=== PATIENT | female | born 1970 | race Caucasian/White ===

== ENCOUNTER 2016-11-13 10:11 | Emergency (ER) | payer OTHER ==
--- NOTE | 2016-11-13 10:25 | ER Document Report ---
ED General - General Stated Complaint: POSSIBLE SYNCOPAL EPISODE Mode of Arrival: Medic Information source: Patient Notes: 38-year-old female history of hypertension on lisinopril with no other medical history was on no other medications presents with complaints of a seizure like episode that lasted about 20 seconds just prior to arrival. Patient was standing went to the ground noted to have generalized clonic tonic activity. There was a postictal state or patient was confused, patient was evaluated by EMS noted to have a blood sugar of 120, blood pressure was stable however when they stood her up had a syncopal episode. Patient also notes that she's been complaining of right lower quadrant abdominal pain around her scar for 2 days TRAVEL OUTSIDE OF THE [place] IN LAST 30 DAYS: No - HPI Onset: Just prior to arrival Onset/Duration: Sudden Quality of pain: Sharp Severity: Mild Pain Level: 1 Associated symptoms: Other Exacerbated by: Denies Relieved by: Denies Similar symptoms previously: No Recently seen / treated by doctor: No - Related Data Allergies/Adverse Reactions: codeine [Codeine] Allergy (Mild, Verified 01/31/16 11:49) rash, swelling, hives promethazine HCl [From Phenergan] Allergy (Mild, Verified 01/31/16 11:49) rash, swelling, hives Sulfa (Sulfonamide Antibiotics) Allergy (Mild, Verified 01/31/16 11:49) rash, swelling, hives Past Medical History - Social History Smoking Status: Current Every Day Smoker Cigarette use (# per day): Yes Chew tobacco use (# tins/day): No Smoking Education Provided: No Family History: Reviewed & Not Pertinent - Past Medical History Cardiac Medical History: Reports: Hx Hypercholesterolemia - triglycerides, Hx Hypertension Denies: Hx Coronary Artery Disease, Hx Heart Attack Pulmonary Medical History: Denies: Hx Asthma, Hx Bronchitis, Hx COPD, Hx Pneumonia Neurological Medical History: Reports: Hx Migraine. Denies: Hx Cerebrovascular Accident, Hx Seizures Renal/ Medical History: Reports: Hx Kidney Stones Musculoskeltal Medical History: Reports Hx Arthritis - Spinal, Left Knee, LEFT THUMB, NECK Traumatic Medical History: Reports: Hx Fractures Past Surgical History: Reports: Hx Appendectomy, Hx Section, Hx Orthopedic Surgery - carpal tunnel. Denies: Hx Hysterectomy, Hx Pacemaker - Immunizations Hx Diphtheria, Pertussis, Tetanus Vaccination: Yes - 2013 Review of Systems - Review of Systems Notes: REVIEW OF SYSTEMS: CONSTITUTIONAL : Denies fever, chills, or sweats. Denies recent illness. EENT: Denies eye, ear, throat, or mouth pain or symptoms. Denies nasal or sinus congestion or discharge. Denies throat, tongue, or mouth swelling or difficulty swallowing. CARDIOVASCULAR: Denies chest pain. Denies palpitations or racing or irregular heart beat. Denies ankle edema. RESPIRATORY: Denies cough, cold, or chest congestion. Denies shortness of breath, difficulty breathing, or wheezing. GASTROINTESTINAL: Right lower quadrant abdominal pain GENITOURINARY: Denies difficulty urinating, painful urination, burning, frequency, blood in urine, or discharge. FEMALE GENITOURINARY: Denies vaginal bleeding, heavy or abnormal periods, irregular periods. Denies vaginal discharge or odor. MUSCULOSKELETAL: Denies back or neck pain or stiffness. Denies joint pain or swelling. SKIN: Denies rash, lesions or sores. HEMATOLOGIC : Denies easy bruising or bleeding. LYMPHATIC: Denies swollen, enlarged glands. NEUROLOGICAL: Seizure like activity PSYCHIATRIC: Denies anxiety or stress. Denies depression, suicidal ideation, or homicidal ideation. ALL OTHER SYSTEMS REVIEWED AND NEGATIVE. Dictation was performed using [employer] voice recognition software PHYSICAL EXAMINATION: GENERAL: Well-appearing, well-nourished and in no acute distress. HEAD: Atraumatic, normocephalic. EYES: Pupils equal round and reactive to light, extraocular movements intact, conjunctiva are normal. ENT: Nares patent, oropharynx clear without exudates. Moist mucous membranes. NECK: Normal range of motion, supple without lymphadenopathy LUNGS: Breath sounds clear to auscultation bilaterally and equal. No wheezes rales or rhonchi. HEART: Regular rate and rhythm without murmurs ABDOMEN: Soft, tender in the right lower quadrant without guarding Female : deferred Musculoskeletal: Normal range of motion, no pitting or edema. No cyanosis. NEUROLOGICAL: Cranial nerves grossly intact. Normal speech, normal gait. Normal sensory, motor exams PSYCH: Normal mood, normal affect. SKIN: Warm, Dry, normal turgor, no rashes or lesions noted. Physical Exam - Vital signs Vitals: Resp BP 14 130/58 H 11/13/16 10:23 11/13/16 10:23 Course - Re-evaluation Re-evalutation: 11/13/16 10:24 Lab work imaging are pending at this time patient's otherwise stable 11/13/16 12:16 CT head and abdomen pelvis noted no significant abnormality, patient otherwise looks well. Given that this is a first seizure I will have her follow-up with neurology and given her very close to seizure precautions Patient notes history of multiple kidney stones, I believe her hematuria secondary to this After performing a Medical Screening Examination, I estimate there is LOW risk for INTRACRANIAL HEMORRHAGE, ISCHEMIC CVA, MALIGNANT DYSRHYTHMIA, ACUTE CORONARY SYNDROME, MENINGITIS, PULMONARY EMBOLISM, or SEPSIS thus I consider the discharge disposition reasonable. The patient and I have discussed the diagnosis and risks, and we agree with discharging home with close follow-up with the understanding that symptoms and presentations can change. We also discussed returning to the Emergency Department immediately if new or worsening symptoms occur. We have discussed the symptoms which are most concerning (e.g., changing or worsening pain, weakness, vomiting, fever) that necessitate immediate return. 11/13/16 12:18 - Vital Signs Vital signs: Temp Pulse Resp BP Pulse Ox 97.6 F 66 17 142/66 H 99 11/13/16 10:33 11/13/16 10:33 11/13/16 12:02 11/13/16 12:02 11/13/16 12:02 - Laboratory Result Diagrams: 11/13/16 10:25 11/13/16 10:25 Laboratory results interpreted by me: 11/13/16 11/13/16 11/13/16 10:25 10:25 10:25 Hgb 11.4 L Hct 34.1 L MCV 79 L MCH 26.4 L RDW 15.5 H Carbon Dioxide 21 L Urine Blood MODERATE H - Diagnostic Test Radiology reviewed: Image reviewed, Reports reviewed - EKG Interpretation by Me EKG shows normal: Sinus rhythm, [place], Intervals, QRS Complexes Discharge - Discharge Clinical Impression: Seizure, Hematuria, Right lower quadrant abdominal pain Syncope Qualifiers: Syncope type: unspecified Qualified Code(s): R55 - Syncope and collapse Condition: Stable Disposition: HOME, SELF-CARE Instructions: Abdominal Pain ([facility]), New Seizure ([facility]) Additional Instructions: Follow up with your physician tomorrow for further care or return to the ED IMMEDIATELY if symptoms worsen or new concerns occur Prescriptions: Oxycodone HCl/Acetaminophen [Percocet 5-325 mg Tablet] 1 - 2 tab PO Q4H PRN #15 tablet PRN Reason: Tamsulosin HCl [Flomax] 0.4 mg PO Q6 #10 cap.er.24h
[2016-11-13 10:49] LABS: ABSOLUTE EOSINOPHILS # (AUTO) 0.1 10^3/uL (0.0-0.6); ABSOLUTE LYMPHOCYTES (AUTO) 2.2 10^3/uL (0.5-4.7); ABSOLUTE MONOCYTES (AUTO) 0.6 10^3/uL (0.1-1.4); ABSOLUTE NEUT (AUTO) 4.2 10^3/uL (1.7-8.2); BASOPHILS % (AUTO) 0.5 % (0-2); EOSINOPHILS % (AUTO) 1.1 % (0-6); HEMATOCRIT 34.1 % (36.0-47.0); HEMOGLOBIN 11.4 g/dL (12.0-15.5); HGB HCT DIFFERENCE 0.1; LYMPHOCYTES % (AUTO) 30.6 % (13-45); MEAN CORPUSCULAR HEMOGLOBIN 26.4 pg (27.0-33.4); MEAN CORPUSCULAR HGB CONC 33.3 g/dL (32.0-36.0); MEAN CORPUSCULAR VOLUME 79 fl (80-97); MONOCYTES % (AUTO) 8.4 % (3-13); RED BLOOD COUNT 4.31 10^6/uL (3.72-5.28); RED CELL DISTRIBUTION WIDTH 15.5 % (11.5-14.0); SEGMENTED NEUTROPHILS % (AUTO) 59.4 % (42-78); WHITE BLOOD COUNT 7.1 10^3/uL (4.0-10.5)
[2016-11-13 10:53] LABS: APPEARANCE,URINE SLIGHTLY-CLOUDY; BILIRUBIN,URINE NEGATIVE (NEGATIVE); GLUCOSE, URINE NEGATIVE (NEGATIVE); KETONES,URINE NEGATIVE (NEGATIVE); LEUKOCYTE ESTERASE,URINE NEGATIVE (NEGATIVE); NITRITE,URINE NEGATIVE (NEGATIVE); PROTEIN,URINE NEGATIVE (NEGATIVE); UROBILINOGEN,URINE NEGATIVE mg/dL (<2.0)
[2016-11-13 11:08] LABS: BLOOD UREA NITROGEN 14 mg/dL (7-20); CALCIUM 9.4 mg/dL (8.4-10.2); CREATININE RESULT 0.57 mg/dL (0.52-1.25); GLUCOSE 105 mg/dL (75-110)
[2016-11-13 11:09] LABS: ALANINE AMINOTRANSFERASE 49 U/L (9-52); ALBUMIN 4.1 g/dL (3.5-5.0); ALKALINE PHOSPHATASE 116 U/L (38-126); ANION GAP 13 (5-19); ASPARTATE AMINO TRANSFERASE 26 U/L (14-36); BILIRUBIN,DIRECT 0.1 mg/dL (0.0-0.4); BILIRUBIN,TOTAL 0.6 mg/dL (0.2-1.3); CARBON DIOXIDE 21 mmol/L (22-30); CHLORIDE 106 mmol/L (98-107); CREATINE KINASE 123 U/L (30-135); LIPASE 135.7 U/L (23-300); POTASSIUM 4.1 mmol/L (3.6-5.0); SODIUM 140.2 mmol/L (137-145); TOTAL PROTEIN 6.8 g/dL (6.3-8.2)
[2016-11-13 11:22] LABS: TROPONIN I < 0.012 ng/mL
[2016-11-13] MEDS ORDERED: MORPHINE SULFATE 10 MG/ML INJ IV ONE (11:23)
--- NOTE | 2016-11-13 13:11 | EKG REPORT ---
SEVERITY:- NORMAL ECG - SINUS RHYTHM : Confirmed by: Zena Andres MD 13-Nov-2016 13:10:23
[2016-11-13 13:30] VITALS: BP 119/60
== END 2016-11-13 13:30 | disposition home or self-care (01) ==
LOC: ER 10:11
DX: R56.9 Unspecified convulsions (principal); R31.9 Hematuria, unspecified; R10.31 Right lower quadrant pain; R55 Syncope and collapse; Z79.899 Other long term (current) drug therapy; I10 Essential (primary) hypertension
CPT/HCPCS: 93005; 99284; 96374; 36415; 82553; 82550; 83690; 85025; 80053; 81001; 84484; 83880; 70450; 74177; 93010; J2270

== ENCOUNTER → 2017-01-23 | Outpatient (CLI) | payer OTHER ==
--- NOTE | 2017-01-23 15:33 | WOMENS IMAGING REPORT ---
EXAM DESCRIPTION: BILAT DIAGNOSTIC MAMMO W/CAD; U/S BREAST UNILAT LIMITED COMPLETED DATE/TIME: 01/23/2017 1:21 pm; 01/23/2017 1:44 pm REASON FOR STUDY: N63, BREAST LUMP; BREAST LUMP;N63 N63 UNSPECIFIED LUMP IN BREAST COMPARISON: 2014. TECHNIQUE: Standard craniocaudal and mediolateral oblique views of each breast recorded using digita l acquisition. Additional left mediolateral view. Additional targeted left breast ultrasound in the region of interest. Grayscale and selected color D oppler images are obtained. LIMITATIONS: None. FINDINGS: RIGHT BREAST MASSES: No suspicious masses. CALCIFICATIONS: No new or suspicious calcifications. ARCHITECTURAL DISTORTION: None. DEVELOPING DENSITY: None. ASYMMETRY: None noted. OTHER: No other significant findings. LEFT BREAST MASSES: No suspicious masses. CALCIFICATIONS: No new or suspicious calcifications. ARCHITECTURAL DISTORTION: None. DEVELOPING DENSITY: None. ASYMMETRY: None noted. OTHER: No other significant finding. Read with the assistance of CAD: .[facility] - R2 Cenova Version 1.3 .[facility] - R2 Cenova Version 1.3 .[facility] - R2 Cenova Version 2.4 .[facility] R2 Cenova Version 2.4 .[facility] - R2 High Lift Driver Version 9.2 Ultrasound imaging in the region of interest at approximately 9 -10 o'clock is negative. No mass or architectural distortion appreciated. IMPRESSION: Negative diagnostic mammograms. Negative left breast ultrasound. BREAST DENSITY: c. The breasts are heterogeneously dense, which may obscure small masses. BIRAD: 1 Negative. RECOMMENDATION: RECOMMENDED FOLLOW UP: Clinical followup. Continued regular screening mammography o therwise. SPECIFIC INTERVENTION/IMAGING/CONSULTATION RECOMMENDED:No additional intervention/ imaging/consultati on needed at this time. COMMUNICATION:No significant abnormalities to discuss with the patient today. COMMENT: The patient has been notified of the results by letter per SA requirements. Additional no tification policies are in place for contacting patient with suspicious or incomplete findings. Quality ID #[id number]: The [employer] recommends an annual screening mammogram for women aged 40 years or over. This facility utilizes a reminder system to ensure that all patients receive reminder letters, and/or direct phone calls for appointments. This includes reminders for routine scr eening mammograms, diagnostic mammograms, or other Breast Imaging Interventions when appropriate. Th is patient will be placed in the appropriate reminder system. The [employer] (ACR) has developed recommendations for screening MRI of the breast s in certain patient populations, to be used in conjunction with mammography. Breast MRI surveillanc e may be appropriate for women with more than 20% lifetime risk of developing breast cancer as deter mined by genetic testing, significant family history of the disease, or history of mantle radiation f or Hodgkins Disease. ACR Practice Guidelines 2008. TECHNICAL DOCUMENTATION: FINDING NUMBER: (1) ASSESSMENT: (1) JOB ID: [id number] [employer] All Rights Reserved
--- NOTE | 2017-01-23 15:34 | WOMENS IMAGING REPORT ---
EXAM DESCRIPTION: BILAT DIAGNOSTIC MAMMO W/CAD; U/S BREAST UNILAT LIMITED COMPLETED DATE/TIME: 01/23/2017 1:21 pm; 01/23/2017 1:44 pm REASON FOR STUDY: N63, BREAST LUMP; BREAST LUMP;N63 N63 UNSPECIFIED LUMP IN BREAST COMPARISON: 2014. TECHNIQUE: Standard craniocaudal and mediolateral oblique views of each breast recorded using digita l acquisition. Additional left mediolateral view. Additional targeted left breast ultrasound in the region of interest. Grayscale and selected color D oppler images are obtained. LIMITATIONS: None. FINDINGS: RIGHT BREAST MASSES: No suspicious masses. CALCIFICATIONS: No new or suspicious calcifications. ARCHITECTURAL DISTORTION: None. DEVELOPING DENSITY: None. ASYMMETRY: None noted. OTHER: No other significant findings. LEFT BREAST MASSES: No suspicious masses. CALCIFICATIONS: No new or suspicious calcifications. ARCHITECTURAL DISTORTION: None. DEVELOPING DENSITY: None. ASYMMETRY: None noted. OTHER: No other significant finding. Read with the assistance of CAD: .[facility] - R2 Cenova Version 1.3 .[facility] Imaging - R2 Cenova Version 1.3 .[facility] - R2 Cenova Version 2.4 .[facility] - R2 Cenova Version 2.4 .[facility] - R2 Machine Welder Version 9.2 Ultrasound imaging in the region of interest at approximately 9 -10 o'clock is negative. No mass or architectural distortion appreciated. IMPRESSION: Negative diagnostic mammograms. Negative left breast ultrasound. BREAST DENSITY: c. The breasts are heterogeneously dense, which may obscure small masses. BIRAD: 1 Negative. RECOMMENDATION: RECOMMENDED FOLLOW UP: Clinical followup. Continued regular screening mammography o therwise. SPECIFIC INTERVENTION/IMAGING/CONSULTATION RECOMMENDED:No additional intervention/ imaging/consultati on needed at this time. COMMUNICATION:No significant abnormalities to discuss with the patient today. COMMENT: The patient has been notified of the results by letter per SA requirements. Additional no tification policies are in place for contacting patient with suspicious or incomplete findings. Quality ID #225: The [employer] recommends an annual screening mammogram for women aged 40 years or over. This facility utilizes a reminder system to ensure that all patients receive reminder letters, and/or direct phone calls for appointments. This includes reminders for routine scr eening mammograms, diagnostic mammograms, or other Breast Imaging Interventions when appropriate. Th is patient will be placed in the appropriate reminder system. The [employer] (ACR) has developed recommendations for screening MRI of the breast s in certain patient populations, to be used in conjunction with mammography. Breast MRI surveillanc e may be appropriate for women with more than 20% lifetime risk of developing breast cancer as deter mined by genetic testing, significant family history of the disease, or history of mantle radiation f or Hodgkins Disease. ACR Practice Guidelines 2008. TECHNICAL DOCUMENTATION: FINDING NUMBER: (1) ASSESSMENT: (1) JOB ID: [id number] [employer]- All Rights Reserved
== END ==
LOC: WI 13:05
PROVIDERS: ATTEND Family Medicine
DX: N63 Unspecified lump in breast (principal)
CPT/HCPCS: 76642; G0204; 77066

== ENCOUNTER → 2018-01-01 | Outpatient (CLI) | payer MEDICAID, OTHER ==
--- NOTE | 2018-01-01 11:55 | RADIOLOGY REPORT (SQ) ---
EXAM DESCRIPTION: HIP RIGHT AP/LATERAL COMPLETED DATE/TIME: 01/01/2018 11:35 am REASON FOR STUDY: ACUTE RIGHT HIP PAIN M25.551 PAIN IN RIGHT HIP COMPARISON: Right hip films 05/16/2016 CT abdomen pelvis 11/13/2016 NUMBER OF VIEWS: Two views. TECHNIQUE: AP pelvis and additional frog-leg view of the right hip. LIMITATIONS: None. FINDINGS: MINERALIZATION: Normal. RIGHT HIP: No fracture or dislocation. Mild joint space narrowing with moderate acetabular rim bony spurring, stable compared to previous exams. LEFT HIP: No fracture or dislocation. Mild joint space narrowing with moderate left acetabular rim b dimitrios spurring, stable compared to previous exams. . PUBIS AND ISCHIUM: No fracture. PELVIS: No fracture. SACRUM: No fracture or dislocation. No worrisome bone lesions. LOWER LUMBAR SPINE: Asymmetric right-sided L5-S1 facet arthropathy SOFT TISSUES: No findings. OTHER: No other significant finding. IMPRESSION: Bilateral hip mild joint space narrowing and osteophyte formation. Right L5-S1 facet ar thropathy. No acute fracture or malalignment. TECHNICAL DOCUMENTATION: JOB ID: [id number] [employer]- All Rights Reserved Reading location - IP/workstation name: [email or web address]
== END ==
LOC: OD 11:08
PROVIDERS: ATTEND Nurse Practitioner Acute Care
DX: M25.551 Pain in right hip (principal)

== ENCOUNTER → 2018-02-14 | Outpatient (CLI) | payer MEDICAID ==
--- NOTE | 2018-02-17 09:56 | WOMENS IMAGING REPORT ---
EXAM DESCRIPTION: BILAT SCREENING MAMMO W/CAD COMPLETED DATE/TIME: 02/14/2018 1:15 pm REASON FOR STUDY: SCREENING MAMMO Z12.31 ENCNTR SCREEN MAMMOGRAM FOR MALIGNANT NEOPLASM OF ADILENE COMPARISON: 2014 TECHNIQUE: Standard craniocaudal and mediolateral oblique views of each breast recorded using digita l acquisition. LIMITATIONS: None. FINDINGS: No masses, calcifications or architectural distortion. No areas of suspicion. Read with the assistance of CAD. .[facility] - R2 Cenova Version 1.3 .[facility] Imaging - R2 Cenova Version 1.3 .[facility] - R2 Cenova Version 2.4 .[facility] - R2 Cenova Version 2.4 .[facility] - R2 Petroleum Geologist Version 9.2 IMPRESSION: NORMAL MAMMOGRAM. BIRADS 1. BREAST DENSITY: c. The breasts are heterogeneously dense, which may obscure small masses. BIRAD: 1 NEGATIVE RECOMMENDATION: ROUTINE SCREENING Please consider bilateral screening tomosynthesis in February 2019 given heterogeneously dense tissue COMMENT: The patient has been notified of the results by letter per SA requirements. Additional no tification policies are in place for contacting patient with suspicious or incomplete findings. Quality ID #[id number]: The [employer] recommends an annual screening mammogram for women aged 40 years or over. This facility utilizes a reminder system to ensure that all patients receive reminder letters, and/or direct phone calls for appointments. This includes reminders for routine scr eening mammograms, diagnostic mammograms, or other Breast Imaging Interventions when appropriate. Th is patient will be placed in the appropriate reminder system. The [employer] (ACR) has developed recommendations for screening MRI of the breast s in certain patient populations, to be used in conjunction with mammography. Breast MRI surveillanc e may be appropriate for women with more than 20% lifetime risk of developing breast cancer as deter mined by genetic testing, significant family history of the disease, or history of mantle radiation f or Hodgkins Disease. ACR Practice Guidelines 2008. TECHNICAL DOCUMENTATION: FINDING NUMBER: (1) ASSESSMENT: (1) JOB ID: [id number] [employer]- All Rights Reserved Reading location - IP/workstation name: [email or web address]
== END ==
LOC: WI 12:54
PROVIDERS: ATTEND Family Medicine
DX: Z12.31 Encounter for screening mammogram for malignant neoplasm of breast (principal)
CPT/HCPCS: 77067

== ENCOUNTER 2018-06-05 13:34 | Observation (INO) | payer MEDICAID ==
--- NOTE | 2018-06-05 15:06 | ER Document Report ---
ED Medical Screen (RME) - General Chief Complaint: Syncope Stated Complaint: SYNCOPE Time Seen by Provider: 06/05/18 15:00 TRAVEL OUTSIDE OF THE [place] IN LAST 30 DAYS: No - HPI Notes: 06/05/18 15:05 Syncopal episode while at the doctor's office - Related Data Allergies/Adverse Reactions: codeine [Codeine] Allergy (Mild, Verified 06/05/18 14:50) rash, swelling, hives promethazine HCl [From Phenergan] Allergy (Mild, Verified 06/05/18 14:50) rash, swelling, hives Sulfa (Sulfonamide Antibiotics) Allergy (Mild, Verified 06/05/18 14:50) rash, swelling, hives Past Medical History - Social History Frequency of alcohol use: Occasional Drug Abuse: None - Past Medical History Cardiac Medical History: Reports: Hx Hypercholesterolemia - triglycerides, Hx Hypertension Denies: Hx Coronary Artery Disease, Hx Heart Attack Pulmonary Medical History: Denies: Hx Asthma, Hx Bronchitis, Hx COPD, Hx Pneumonia Neurological Medical History: Reports: Hx Migraine. Denies: Hx Cerebrovascular Accident, Hx Seizures Renal/ Medical History: Reports: Hx Kidney Stones. Denies: Hx Peritoneal Dialysis GI Medical History: Reports: Hx Gastroesophageal Reflux Disease Musculoskeltal Medical History: Reports Hx Arthritis - Spinal, Left Knee, LEFT THUMB, NECK Traumatic Medical History: Reports: Hx Fractures Past Surgical History: Reports: Hx Appendectomy, Hx Section, Hx Orthopedic Surgery - carpal tunnel. Denies: Hx Hysterectomy, Hx Pacemaker - Immunizations Hx Diphtheria, Pertussis, Tetanus Vaccination: Yes - 2013 Review of Systems - Review of Systems Cardiovascular: Syncope Physical Exam - Vital signs Vitals: Temp Pulse Resp BP Pulse Ox 98.5 F 75 16 116/59 L 97 06/05/18 14:05 06/05/18 14:05 06/05/18 14:05 06/05/18 14:05 06/05/18 14:05 - Respiratory Respiratory status: No respiratory distress Chest status: Nontender Breath sounds: Normal Chest palpation: Normal - Cardiovascular Rhythm: Regular Heart sounds: Normal auscultation - Neurological Neuro grossly intact: Yes Cognition: Normal Orientation: AAOx4 Leroy Coma Scale Eye Opening: Spontaneous Leroy Coma Scale Verbal: Oriented Leroy Coma Scale Motor: Obeys Commands Leroy Coma Scale Total: 15 Speech: Normal Cranial nerves: Normal Motor strength normal: LUE, RUE, LLE, RLE Additional motor exam normals: Equal financial services auditor. No: Pronator drift Sensory: Normal Course - Vital Signs Vital signs: Temp Pulse Resp BP Pulse Ox 98.5 F 75 16 116/59 L 97 06/05/18 14:05 06/05/18 14:05 06/05/18 14:05 06/05/18 14:05 06/05/18 14:05 Doctor's Discharge - Discharge Referrals: KYLIE DANIELS DO [Primary Care Provider] - Follow up as needed
[2018-06-05 15:36] LABS: ABSOLUTE EOSINOPHILS # (AUTO) 0.1 10^3/uL (0.0-0.6); ABSOLUTE MONOCYTES (AUTO) 0.6 10^3/uL (0.1-1.4); ABSOLUTE NEUT (AUTO) 5.5 10^3/uL (1.7-8.2); BASOPHILS % (AUTO) 0.4 % (0-2); EOSINOPHILS % (AUTO) 1.1 % (0-6); HEMATOCRIT 35.1 % (36.0-47.0); HEMOGLOBIN 11.7 g/dL (12.0-15.5); LYMPHOCYTES % (AUTO) 24.2 % (13-45); MEAN CORPUSCULAR HEMOGLOBIN 25.5 pg (27.0-33.4); MEAN CORPUSCULAR HGB CONC 33.5 g/dL (32.0-36.0); MEAN CORPUSCULAR VOLUME 76 fl (80-97); PLATELET COUNT 406 10^3/uL (150-450); RED BLOOD COUNT 4.61 10^6/uL (3.72-5.28); RED CELL DISTRIBUTION WIDTH 16.3 % (11.5-14.0); SEGMENTED NEUTROPHILS % (AUTO) 67.3 % (42-78); TOTAL CELLS COUNTED % (AUTO) 100 %; WHITE BLOOD COUNT 8.2 10^3/uL (4.0-10.5)
--- NOTE | 2018-06-05 15:44 | RADIOLOGY REPORT (SQ) ---
EXAM DESCRIPTION: CT HEAD WITHOUT COMPLETED DATE/TIME: 06/05/2018 3:34 pm REASON FOR STUDY: Syncope COMPARISON: 11/13/2016 TECHNIQUE: Axial images acquired through the brain without intravenous contrast. Images reviewed wi th bone, brain and subdural windows. Additional sagittal and coronal reconstructions were generated. Images stored on PACS. All CT scanners at this facility use dose modulation, iterative reconstruction, and/or weight based d osing when appropriate to reduce radiation dose to as low as reasonably achievable (ALARA). [facility]: Dose Right [facility]: CareDose [facility]: Dose Right [facility]: Teradose 4D [facility]: Smart [employer] RADIATION DOSE: CT Rad equipment meets quality standard of care and radiation dose reduction techniq ues were employed. CTDIvol: 53.2 mGy. DLP: 991 mGy-cm. mGy. LIMITATIONS: None. FINDINGS: VENTRICLES: Normal size and contour. CEREBRUM: No masses. No hemorrhage. No midline shift. No evidence for acute infarction. Normal gra y/white matter differentiation. No areas of low density in the white matter. CEREBELLUM: No masses. No hemorrhage. No alteration of density. No evidence for acute infarction. EXTRAAXIAL SPACES: No fluid collections. No masses. ORBITS AND GLOBE: No intra- or extraconal masses. Normal contour of globe without masses. CALVARIUM: No fracture. PARANASAL SINUSES: No fluid or mucosal thickening. SOFT TISSUES: No mass or hematoma. OTHER: No other significant finding. IMPRESSION: NORMAL BRAIN CT WITHOUT CONTRAST. EVIDENCE OF ACUTE STROKE: NO. COMMENT: Quality ID # [id number]: Final reports with documentation of one or more dose reduction techniques (e.g., Automated exposure control, adjustment of the mA and/or kV according to patient size, use of iterative reconstruction technique) TECHNICAL DOCUMENTATION: JOB ID: [id number] [employer]- All Rights Reserved Reading location - IP/workstation name: [email or web address]
[2018-06-05 15:57] LABS: ALANINE AMINOTRANSFERASE 44 U/L (9-52); ALBUMIN 4.6 g/dL (3.5-5.0); ALKALINE PHOSPHATASE 103 U/L (38-126); ANION GAP 16 (5-19); ASPARTATE AMINO TRANSFERASE 29 U/L (14-36); BILIRUBIN,DIRECT 0.1 mg/dL (0.0-0.4); BILIRUBIN,TOTAL 0.4 mg/dL (0.2-1.3); BLOOD UREA NITROGEN 16 mg/dL (7-20); CALCIUM 10.1 mg/dL (8.4-10.2); CARBON DIOXIDE 25 mmol/L (22-30); CHLORIDE 102 mmol/L (98-107); CREATINE KINASE 85 U/L (30-135); GLUCOSE 112 mg/dL (75-110); POTASSIUM 4.5 mmol/L (3.6-5.0); SODIUM 142.8 mmol/L (137-145); TOTAL PROTEIN 8.1 g/dL (6.3-8.2)
--- NOTE | 2018-06-05 16:02 | RADIOLOGY REPORT (SQ) ---
EXAM DESCRIPTION: CHEST SINGLE VIEW COMPLETED DATE/TIME: 06/05/2018 3:52 pm REASON FOR STUDY: sycnope COMPARISON: 11/04/2015, 05/02/2015 EXAM PARAMETERS: NUMBER OF VIEWS: One view. TECHNIQUE: Single frontal radiographic view of the chest acquired. RADIATION DOSE: NA LIMITATIONS: None. FINDINGS: LUNGS AND PLEURA: No opacities, masses or pneumothorax. No pleural effusion. MEDIASTINUM AND HILAR STRUCTURES: No masses. Contour normal. HEART AND VASCULAR STRUCTURES: Heart normal in size. Normal vasculature. BONES: No acute findings. HARDWARE: None in the chest. OTHER: No other significant finding. IMPRESSION: NO ACUTE RADIOGRAPHIC FINDING IN THE CHEST. TECHNICAL DOCUMENTATION: JOB ID: [id number] [employer]- All Rights Reserved Reading location - IP/workstation name: [email or web address]
[2018-06-05] MEDS ORDERED: KETOROLAC TROMETHAMINE INJ/PF 30 MG/1 ML SDV IV ONE (16:22)
[2018-06-05] MEDS ORDERED: NORMAL SALINE 1000 ML 1,000 ML IV ONE (16:22)
[2018-06-05 16:24] LABS: CREATINE KINASE MB 0.74 ng/mL (<4.55)
[2018-06-05 16:25] LABS: TROPONIN I < 0.012 ng/mL
--- NOTE | 2018-06-05 16:26 | ER Document Report ---
ED Syncope and Near Syncope - General Chief Complaint: Syncope Stated Complaint: SYNCOPE Time Seen by Provider: 06/05/18 15:00 TRAVEL OUTSIDE OF THE [place] IN LAST 30 DAYS: No - HPI Notes: Patient is a 47-year-old female that presents to the emergency department for chief complaint of syncope. Patient presents from physician's office for syncopal event. She was checking her daughter and at a doctor's office and while standing she started to feel very light headed. She states she also felt nauseated. She denies any palpitations or vision changes. Patient states she then had a full syncopal episode falling to the ground. Her daughter states she was oriented when she woke back up and she did not see any shaking. patient has no history of seizure in the past. She does states she has been going through menopause and had not had a menstrual cycle for a few months. She had very heavy menstrual flow for 2 days about 2 days ago. Currently her menstrual cycle has almost completely resolved again. She denies feeling syncopal prior to today. She denies any associated fever, chest pain, nausea, vomiting and shortness of breath. Currently she states she is feeling better. Past Medical History: Hypertension, TIA, GERD Past Surgical History: Appendectomy, x2, uterine ablation Social History: Denies drugs alcohol and tobacco Family History: Reviewed and noncontributory for presenting illness Allergies: Reviewed, see documented allergy list. REVIEW OF SYSTEMS: CONSTITUTIONAL : No fever No chills No diaphoresis No recent illness EENT: No vision changes No congestion No sore throat CARDIOVASCULAR: Syncope No chest pain No palpitations RESPIRATORY: No shortness of breath No cough No difficulty breathing GASTROINTESTINAL: No abdominal pain No nausea No vomiting No diarrhea GENITOURINARY: No dysuria No hematuria No difficulty urinating MUSCULOSKELETAL: No back pain No leg pain No arm pain SKIN: No rashes No lesions LYMPHATIC: No swollen, enlarged glands. NEUROLOGICAL: No lightheadedness No headache No weakness No paresthesias PSYCHIATRIC: No anxiety No depression PHYSICAL EXAMINATION: Vital signs reviewed, nursing noted reviewed. GENERAL: Well-appearing, well-nourished and in no acute distress. HEAD: Atraumatic, normocephalic. EYES: Eyes appear normal, extraocular movements intact, sclera anicteric, conjunctiva are normal. ENT: nares patent, oropharynx clear without exudates. Moist mucous membranes. NECK: Normal range of motion, supple without lymphadenopathy LUNGS: Breath sounds clear to auscultation bilaterally and equal. No wheezes rales or rhonchi. HEART: Regular rate and rhythm without murmurs ABDOMEN: Soft, nontender, normoactive bowel sounds. No rebound, guarding, or rigidity. No masses appreciated. EXTREMITIES: Nontender, good range of motion, no pitting or edema. NEUROLOGICAL: No focal neurological deficits. Moves all extremities spontaneously Motor and sensory grossly intact on exam. PSYCH: Normal mood, normal affect. SKIN: Warm, Dry, normal turgor, no rashes or lesions noted on exposed skin - Related Data Allergies/Adverse Reactions: codeine [Codeine] Allergy (Mild, Verified 06/05/18 14:50) rash, swelling, hives promethazine HCl [From Phenergan] Allergy (Mild, Verified 06/05/18 14:50) rash, swelling, hives Sulfa (Sulfonamide Antibiotics) Allergy (Mild, Verified 06/05/18 14:50) rash, swelling, hives Past Medical History - Social History Smoking Status: Never Smoker Frequency of alcohol use: Occasional Drug Abuse: None Family History: Reviewed & Not Pertinent Patient has suicidal ideation: No Patient has homicidal ideation: No - Past Medical History Cardiac Medical History: Reports: Hx Hypercholesterolemia - triglycerides, Hx Hypertension Denies: Hx Coronary Artery Disease, Hx Heart Attack Pulmonary Medical History: Denies: Hx Asthma, Hx Bronchitis, Hx COPD, Hx Pneumonia Neurological Medical History: Reports: Hx Migraine. Denies: Hx Cerebrovascular Accident, Hx Seizures Renal/ Medical History: Reports: Hx Kidney Stones. Denies: Hx Peritoneal Dialysis GI Medical History: Reports: Hx Gastroesophageal Reflux Disease Musculoskeletal Medical History: Reports Hx Arthritis - Spinal, Left Knee, LEFT THUMB, NECK Traumatic Medical History: Reports: Hx Fractures Past Surgical History: Reports: Hx Appendectomy, Hx Section, Hx Orthopedic Surgery - carpal tunnel. Denies: Hx Hysterectomy, Hx Pacemaker - Immunizations Hx Diphtheria, Pertussis, Tetanus Vaccination: Yes - 2013 Review of Systems - Review of Systems Notes: Dictated Physical Exam - Vital signs Vitals: Temp Pulse Resp BP Pulse Ox 98.5 F 75 16 116/59 L 97 06/05/18 14:05 06/05/18 14:05 06/05/18 14:05 06/05/18 14:05 06/05/18 14:05 - Notes Notes: Dictated Course - Re-evaluation Re-evalutation: 06/05/18 16:25 Vitals reviewed. Nursing notes reviewed. Patient is orthostatic negative. Hemoglobin stable at 11.7. Her cardiac enzyme is negative. EKG showed no dysrhythmia or ischemia. Patient was later complaining of pain in her left wrist and shoulder, imaging showed no acute injury. She will be admitted to the hospital for telemetry monitoring and further cardiac evaluation overnight. She is stable at time of admission. Case discussed with Dr. Figueroa who accepted admission. Laboratory 06/05/18 06/05/18 06/05/18 15:20 15:20 15:20 WBC 8.2 RBC 4.61 Hgb 11.7 L Hct 35.1 L MCV 76 L MCH 25.5 L MCHC 33.5 RDW 16.3 H Plt Count 406 Seg Neutrophils % 67.3 Lymphocytes % 24.2 Monocytes % 7.0 Eosinophils % 1.1 Basophils % 0.4 Absolute Neutrophils 5.5 Absolute Lymphocytes 2.0 Absolute Monocytes 0.6 Absolute Eosinophils 0.1 Absolute Basophils 0.0 Sodium 142.8 Potassium 4.5 Chloride 102 Carbon Dioxide 25 Anion Gap 16 BUN 16 Creatinine 0.71 Est GFR ( Amer) > 60 Est GFR (Non-Af Amer) > 60 Glucose 112 H Calcium 10.1 Total Bilirubin 0.4 Direct Bilirubin 0.1 Neonat Total Bilirubin Not Reportable Neonat Direct Bilirubin Not Reportable Neonat Indirect Bili Not Reportable AST 29 ALT 44 Alkaline Phosphatase 103 Creatine Kinase 85 CK-MB (CK-2) 0.74 Troponin I < 0.012 Total Protein 8.1 Albumin 4.6 Chest X-Ray 06/05/18 15:05 IMPRESSION: NO ACUTE RADIOGRAPHIC FINDING IN THE CHEST. Head CT 06/05/18 15:05 IMPRESSION: NORMAL BRAIN CT WITHOUT CONTRAST. EVIDENCE OF ACUTE STROKE: NO. Wrist X-Ray 06/05/18 16:14 IMPRESSION: No acute fracture. Advanced osteoarthritis right 1st carpometacarpal joint Shoulder X-Ray 06/05/18 16:22 IMPRESSION: NEGATIVE STUDY OF THE LEFT SHOULDER. NO RADIOGRAPHIC EVIDENCE OF ACUTE INJURY. 06/05/18 16:55 - Vital Signs Vital signs: Temp Pulse Resp BP Pulse Ox 98.5 F 68 16 130/58 H 100 06/05/18 14:05 06/05/18 16:44 06/05/18 14:05 06/05/18 16:44 06/05/18 16:00 - Laboratory Result Diagrams: 06/05/18 15:20 06/05/18 15:20 Laboratory results interpreted by me: 06/05/18 06/05/18 15:20 15:20 Hgb 11.7 L Hct 35.1 L MCV 76 L MCH 25.5 L RDW 16.3 H Glucose 112 H - EKG Interpretation by Me Additional EKG results interpreted by me: 06/05/18 16:28 Interpreted by myself 1603: Normal sinus rhythm, rate 67, normal axis, LVH, no ectopy, no ST elevation Discharge - Discharge Clinical Impression: Atypical syncope Condition: Stable Disposition: ADMITTED OBSERVATION Admitting Provider: Hospitalist Unit Admitted: Telemetry Referrals: KYLIE DANIELS DO [Primary Care Provider] - Follow up as needed
--- NOTE | 2018-06-05 16:49 | RADIOLOGY REPORT (SQ) ---
EXAM DESCRIPTION: WRIST LEFT 3 VIEWS COMPLETED DATE/TIME: 06/05/2018 4:39 pm REASON FOR STUDY: trauma fall, injury, pain at the 1st carpometacarpal joint region COMPARISON: None. NUMBER OF VIEWS: Four views. TECHNIQUE: AP, lateral, oblique, and scaphoid radiographic images acquired of the left wrist. LIMITATIONS: None. FINDINGS: MINERALIZATION: Normal. BONES: No acute fracture or dislocation. No worrisome bone lesions. Normal alignment. SOFT TISSUES: No soft tissue swelling. No foreign body. OTHER: There is advanced osteoarthritis at the left 1st carpometacarpal joint, with [id number] appe arance, articular surface sclerosis, and mild bony spurring and a small loose body present at the 1st carpometacarpal joint. IMPRESSION: No acute fracture. Advanced osteoarthritis right 1st carpometacarpal joint TECHNICAL DOCUMENTATION: JOB ID: [id number] [employer]- All Rights Reserved Reading location - IP/workstation name: [email or web address]
--- NOTE | 2018-06-05 16:50 | RADIOLOGY REPORT (SQ) ---
EXAM DESCRIPTION: SHOULDER LEFT 2 OR MORE VIEWS COMPLETED DATE/TIME: 06/05/2018 4:39 pm REASON FOR STUDY: trauma fall, injury, left shoulder pain COMPARISON: None. NUMBER OF VIEWS: Three views. TECHNIQUE: Internal rotation, external rotation, and Y view images acquired of the left shoulder. LIMITATIONS: None. FINDINGS: MINERALIZATION: Normal. BONES: No acute fracture or dislocation. No worrisome bone lesions. JOINTS: Normal glenohumeral joint alignment. No widening of the AC joint. VISUALIZED LUNGS AND RIBS: No pneumothorax. No rib fracture. SOFT TISSUES: No radiopaque foreign body. OTHER: No other significant finding. IMPRESSION: NEGATIVE STUDY OF THE LEFT SHOULDER. NO RADIOGRAPHIC EVIDENCE OF ACUTE INJURY. TECHNICAL DOCUMENTATION: JOB ID: [id number] [employer]- All Rights Reserved Reading location - IP/workstation name: [email or web address]
[2018-06-05] MEDS ORDERED: ACETAMINOPHEN 325 MG TABLET PO PRN (17:52)
[2018-06-05] MEDS ORDERED: NORMAL SALINE 1000 ML 1,000 ML IV PRN (17:53)
--- NOTE | 2018-06-05 18:11 | RADIOLOGY REPORT (SQ) ---
EXAM DESCRIPTION: ELBOW LEFT AP/LATERAL COMPLETED DATE/TIME: 06/05/2018 6:02 pm REASON FOR STUDY: fall/syncope, left elbow pain COMPARISON: None. NUMBER OF VIEWS: Two views. TECHNIQUE: AP and lateral radiographic images acquired of the left elbow. LIMITATIONS: None. FINDINGS: MINERALIZATION: Normal. BONES: No acute fracture or dislocation. No worrisome bone lesions. JOINT: No effusion. SOFT TISSUES: No soft tissue swelling. No foreign body. OTHER: No other significant finding. IMPRESSION: NEGATIVE STUDY OF THE LEFT ELBOW. NO RADIOGRAPHIC EVIDENCE OF ACUTE INJURY. TECHNICAL DOCUMENTATION: JOB ID: [id number] [employer]- All Rights Reserved Reading location - IP/workstation name: [email or web address]
--- NOTE | 2018-06-05 19:06 | PDOC H&P ---
History of Present Illness Admission Date/PCP: 06/05/18 18:17 KYLIE DANIELS DO Patient complains of: syncope History of Present Illness: RUTH ESPARZA is a 47 year old female with a PMH of hypertension, questionable history of TIA (vs Cloud's palsy), and nephrolithiasis who presented with syncope. Patient says she brought her daughter for an annual PE and while standing on the senior receptionist area, she felt light headed and dizzy. She passed out and per daughter was out for 5 minutes. No seizure-like activity. No urinary or bowel incontinence. No confusion. She denies SOB, chest pain or palpitations. She does complain of increasing left flank pain, episodic since last night. She says has history of nephrolithiasis and had lithotripsy before. She denies fever, chills, dysuria, hematuria or frequency. She also complains she has been having increasing vaginal bleeding since Saturday. She thinks tis may be related to her perimenopause when this started last year. Her bleeding stopped 3 months ago and recurred last Saturday. Past Medical History Cardiac Medical History: Reports: Hyperlipidema - triglycerides, Hypertension Denies: Coronary Artery Disease, Myocardial Infarction Pulmonary Medical History: Denies: Asthma, Bronchitis, Chronic Obstructive Pulmonary Disease (COPD), Pneumonia Neurological Medical History: Reports: Migraine Denies: Seizures GI Medical History: Reports: Gastroesophageal Reflux Disease Musculoskeltal Medical History: Reports: Arthritis - Spinal, Left Knee, LEFT THUMB, NECK Hematology: Denies: Anemia Past Surgical History Past Surgical History: Reports: Appendectomy, Section, Orthopedic Surgery - carpal tunnel Denies: Hysterectomy, Pacemaker Social History Smoking Status: Never Smoker Frequency of Alcohol Use: None Hx Recreational Drug Use: No Drugs: None Hx Prescription Drug Abuse: No Family History Family History: Reviewed & Not Pertinent Parental Family History Reviewed: Yes - dad had PR at 42 Children Family History Reviewed: No Sibling(s) Family History Reviewed.: No Medication/Allergy Home Medications: Aspirin [Aspirin EC] 81 mg PO DAILY 06/05/18 Esomeprazole Magnesium [Nexium] 40 mg PO DAILY 06/05/18 Multivitamin/Folic Acid/Biotin [Hair, Skin and Nails Tablet] 1 tab PO DAILY [place]-3 Fatty Acids/Fish Oil [Fish Oil 1,000 mg Capsule] 1 cap PO DAILY Acetaminophen [Tylenol 325 mg Tablet] 650 mg PO Q6HP PRN tablet 06/06/18 Ferrous Sulfate 325 mg PO DAILY #30 tablet 06/06/18 Allergies/Adverse Reactions: codeine [Codeine] Allergy (Mild, Verified 06/05/18 14:50) rash, swelling, hives promethazine HCl [From Phenergan] Allergy (Mild, Verified 06/05/18 14:50) rash, swelling, hives Sulfa (Sulfonamide Antibiotics) Allergy (Mild, Verified 06/05/18 14:50) rash, swelling, hives Review of Systems All systems: reviewed and no additional remarkable complaints except as stated - as mentioned in HPI Physical Exam Vital Signs: Temp Pulse Resp BP Pulse Ox 98.5 F 68 15 123/63 100 06/05/18 14:05 06/05/18 16:44 06/05/18 17:01 06/05/18 18:01 06/05/18 18:01 General appearance: PRESENT: no acute distress, well-developed, well-nourished Head exam: PRESENT: atraumatic, normocephalic Eye exam: PRESENT: conjunctiva pink, EOMI, PERRLA. ABSENT: scleral icterus Ear exam: PRESENT: normal external ear exam Mouth exam: PRESENT: moist, tongue midline Neck exam: ABSENT: carotid bruit, JVD, lymphadenopathy, thyromegaly Respiratory exam: PRESENT: clear to auscultation carlos. ABSENT: rales, rhonchi, wheezes Cardiovascular exam: PRESENT: RRR. ABSENT: diastolic murmur, rubs, systolic murmur Pulses: PRESENT: normal dorsalis pedis pul GI/Abdominal exam: PRESENT: normal bowel sounds, soft. ABSENT: distended, guarding, mass, organolmegaly, rebound, tenderness Rectal exam: PRESENT: deferred Neurological exam: PRESENT: alert, awake, oriented to person, oriented to place , oriented to time, oriented to situation, CN II-XII grossly intact. ABSENT: motor sensory deficit Results Impressions: Elbow X-Ray 06/05/18 00:00 IMPRESSION: NEGATIVE STUDY OF THE LEFT ELBOW. NO RADIOGRAPHIC EVIDENCE OF ACUTE INJURY. Chest X-Ray 06/05/18 15:05 IMPRESSION: NO ACUTE RADIOGRAPHIC FINDING IN THE CHEST. Head CT 06/05/18 15:05 IMPRESSION: NORMAL BRAIN CT WITHOUT CONTRAST. EVIDENCE OF ACUTE STROKE: NO. Wrist X-Ray 06/05/18 16:14 IMPRESSION: No acute fracture. Advanced osteoarthritis right 1st carpometacarpal joint Shoulder X-Ray 06/05/18 16:22 IMPRESSION: NEGATIVE STUDY OF THE LEFT SHOULDER. NO RADIOGRAPHIC EVIDENCE OF ACUTE INJURY. Assessment & Plan - Diagnosis (1) Syncope Qualifiers: Syncope type: unspecified Qualified Code(s): R55 - Syncope and collapse Is this a current diagnosis for this admission?: Yes Plan: Possible vasovagal. Her initial blood pressure was slightly low. She received fluids and orthostatic vital signs after fluids were negative. Will observe overnight on tele. Will check carotid US. - Time Time Spent: 30 to 50 Minutes
--- NOTE | 2018-06-05 20:38 | RADIOLOGY REPORT (SQ) ---
EXAM DESCRIPTION: CAROTID DOPPLER COMPLETED DATE/TIME: 06/05/2018 7:24 pm REASON FOR STUDY: syncope COMPARISON: None. TECHNIQUE: Grayscale ultrasound, Doppler velocity and spectra, and color Doppler images acquired of the extra-cranial carotid and vertebral arteries. Images stored on PACS. LIMITATIONS: None. FINDINGS: RIGHT CAROTID CCA Velocities: 117 centimeters/second ICA Velocities Peak systolic 106 cm/s. End diastolic 31 cm/s. Proximal ICA/CCA peak systolic ratio 0.9. Small amount soft plaque. LEFT CAROTID CCA Velocities: 99 centimeters/second ICA Velocities Peak systolic 149 cm/s. End diastolic 28 cm/s. Proximal ICA/CCA peak systolic ratio 1.5. Small amount soft plaque. VERTEBRAL ARTERIES: Antegrade flow. Normal waveforms. SUBCLAVIAN ARTERIES: No finding. OTHER: No other significant finding. IMPRESSION: NO HEMODYNAMICALLY SIGNIFICANT STENOSIS. COMMENT: Quality ID #195: Velocity criteria are extrapolated from the diameter data as defined by t he Society of Radiologists in Ultrasound Consensus Conference. Radiology 2003: 229; 340-346. TECHNICAL DOCUMENTATION: JOB ID: [id number]- All Rights Reserved Reading location - IP/workstation name: [email or web address]
--- NOTE | 2018-06-05 20:40 | RADIOLOGY REPORT (SQ) ---
EXAM DESCRIPTION: U/S NON-OB PELVIS TV W/O DOP COMPLETED DATE/TIME: 06/05/2018 7:58 pm REASON FOR STUDY: increasing vaginal bleed LMP 05/30/2018 COMPARISON: None. TECHNIQUE: Dynamic and static grayscale images acquired of the pelvis via transvaginal approach and recorded on PACS. Additional selected color Doppler and spectral images recorded. LIMITATIONS: Body habitus, bowel gas. FINDINGS: UTERUS: Contour normal. No mass. ENDOMETRIAL STRIPE: No focal or generalized thickening. No masses. CERVIX: Normal. RIGHT OVARY AND DOPPLER: Ovary not seen. LEFT OVARY AND DOPPLER: Ovary not seen. FREE FLUID: None noted. OTHER: No other significant finding. MEASUREMENTS: UTERUS: 10.4 x 4.6 x 3.7 cm. ENDOMETRIAL STRIPE: 6 mm. RIGHT OVARY: Ovary not seen. LEFT OVARY: Ovary not seen. IMPRESSION: Normal as seen, but the ovaries could not be seen. TECHNICAL DOCUMENTATION: JOB ID: [id number] [employer]- All Rights Reserved Rev-12/27 Reading location - IP/workstation name: [email or web address]
--- NOTE | 2018-06-05 20:42 | RADIOLOGY REPORT (SQ) ---
EXAM DESCRIPTION: U/S RETROPERITON LTD COMPLETED DATE/TIME: 06/05/2018 7:58 pm REASON FOR STUDY: hx of nephrolithw/lithotripsy,acute left flank pn COMPARISON: None. TECHNIQUE: Dynamic and static grayscale images acquired of the kidneys and bladder and recorded on P ACS. Additional selected color Doppler and spectral images recorded. LIMITATIONS: None. FINDINGS: RIGHT KIDNEY: Normal size, 9.5 cm. Normal echogenicity. No masses. Mild cortical thi nning. No hydronephrosis. No calcifications. LEFT KIDNEY: Normal size, 11.1 cm. Normal echogenicity. No masses. Mild cortical thinning. No hydronephrosis. No calcifications. BLADDER: Bladder is nondistended. OTHER FINDINGS: No other significant finding. IMPRESSION: There is some cortical thinning in the kidneys no acute abnormality. TECHNICAL DOCUMENTATION: JOB ID: [id number] [employer]- All Rights Reserved Reading location - IP/workstation name: [email or web address]
--- NOTE | 2018-06-05 21:51 | EKG REPORT ---
SEVERITY:- BORDERLINE ECG - SINUS RHYTHM LVH BY VOLTAGE : Confirmed by: Ronda Beebe 05-Jun-2018 21:50:46
[2018-06-05] MEDS: HEPARIN SOD (PORCINE) 5,000 UNIT/ML 1 ML SYRINGE SUBCUT SCH (21:57)
[2018-06-05] MEDS: KETOROLAC TROMETHAMINE INJ/PF 30 MG/1 ML SDV IV PRN (22:14)
[2018-06-06 05:06] LABS: ABSOLUTE RETICS # 0.069 10^6/uL (0.028-0.122); RETICULOCYTE COUNT (AUTO) 1.81 % (0.66-2.85)
[2018-06-06 05:33] LABS: IRON(TIBC) 20.1 ug/dL (37-170)
[2018-06-06] MEDS: KETOROLAC TROMETHAMINE INJ/PF 30 MG/1 ML SDV IV PRN (07:40)
[2018-06-06] MEDS: HEPARIN SOD (PORCINE) 5,000 UNIT/ML 1 ML SYRINGE SUBCUT SCH (11:37)
--- NOTE | 2018-06-06 13:03 | PDOC DISCHARGE SUMMARY ---
General - Admit/Disc Date/PCP Admission Date/Primary Care Provider: 06/05/18 18:17 KYLIE FRANCES, Discharge Date: 06/06/18 - Discharge Diagnosis (1) Syncope Is this a current diagnosis for this admission?: Yes (2) Hypertension Is this a current diagnosis for this admission?: Yes (3) Iron deficiency anemia Is this a current diagnosis for this admission?: Yes - Additional Information Resuscitation Status: Full Code Discharge Diet: As Tolerated Discharge Activity: Activity As Tolerated Home Medications: Aspirin [Aspirin EC] 81 mg PO DAILY 06/05/18 Esomeprazole Magnesium [Nexium] 40 mg PO DAILY 06/05/18 Multivitamin/Folic Acid/Biotin [Hair, Skin and Nails Tablet] 1 tab PO DAILY [place]-3 Fatty Acids/Fish Oil [Fish Oil 1,000 mg Capsule] 1 cap PO DAILY Acetaminophen [Tylenol 325 mg Tablet] 650 mg PO Q6HP PRN tablet 06/06/18 Ferrous Sulfate 325 mg PO DAILY #30 tablet 06/06/18 History of Present Illness Patient complains of: Syncope History of Present Illness: RUTH ESPARZA is a 47 year old female with a PMH of hypertension, questionable history of TIA (vs Cloud's palsy), and nephrolithiasis who presented with syncope. Patient says she brought her daughter for an annual PE and while standing on the bucket operator area, she felt light headed and dizzy. She passed out and per daughter was out for 5 minutes. No seizure-like activity. No urinary or bowel incontinence. No confusion. She denies SOB, chest pain or palpitations. She does complain of increasing left flank pain, episodic since last night. She says has history of nephrolithiasis and had lithotripsy before. She denies fever, chills, dysuria, hematuria or frequency. She also complains she has been having increasing vaginal bleeding since Saturday. She thinks tis may be related to her perimenopause when this started last year. Her bleeding stopped 3 months ago and recurred last Saturday. Hospital Course Hospital Course: Patient was admitted to telemetry bed and given IV hydration. Her presentation was consistent with a vagal syncope exacerbated by volume depletion. After an evening of IV hydration the following morning patient had negative bedside tilting. She had a complaint of some left paraspinal muscle stiffness from her fall. Her workup included x-rays which showed no fracture or a vaginal ultrasound which did not visualize the ovaries but showed a normal endometrial stripe. Iron studies were performed which showed an iron level of 20 and a saturation of 4 with a ferritin of 5. TIBC was 144 consistent with iron deficiency anemia. Patient states she has had other near syncopal episodes and for this reason a consultation with Dr. Beebe was obtained after discussing the case with him it was recommended she follow-up in his office in the outpatient setting where a tilt table echocardiogram can be performed. Her blood pressure was normotensive in the lower end normal range for this reason her lisinopril was discontinued. She was instructed to follow her blood pressure at home with a home manometer and resume the lisinopril if it increases greater than 140 mmHg systolic. Physical Exam Vital Signs: Temp Pulse Resp BP Pulse Ox 97.8 F 55 L 16 106/50 L 100 06/06/18 04:21 06/06/18 04:45 06/06/18 04:21 06/06/18 04:21 06/06/18 04:21 Intake & Output 06/05/18 06/06/18 06/07/18 06:59 06:59 06:59 Intake Total 522 Balance 522 Weight 98.7 kg General appearance: PRESENT: no acute distress, well-developed, well-nourished Eye exam: PRESENT: conjunctiva pink, EOMI, PERRLA. ABSENT: scleral icterus Neck exam: ABSENT: carotid bruit, JVD, lymphadenopathy, thyromegaly Respiratory exam: PRESENT: clear to auscultation carlos. ABSENT: rales, rhonchi, wheezes Cardiovascular exam: PRESENT: RRR. ABSENT: diastolic murmur, rubs, systolic murmur GI/Abdominal exam: PRESENT: normal bowel sounds, soft. ABSENT: distended, guarding, mass, organolmegaly, rebound, tenderness Extremities exam: PRESENT: full ROM. ABSENT: calf tenderness, clubbing, pedal edema Musculoskeletal exam: PRESENT: tenderness - Left paraspinal muscle stiffness and tenderness. Neurological exam: PRESENT: alert, awake, oriented to person, oriented to place , oriented to time, oriented to situation, CN II-XII grossly intact. ABSENT: motor sensory deficit Results Laboratory Results: 06/06/18 06/06/18 03:59 03:59 Retic Count (auto) 1.81 Absolute Retic 0.069 Iron 20.1 L TIBC 447 % Saturation 4 Ferritin 5.00 L Vitamin B12 267.0 Folate 12.50 06/05/18 18:45 Troponin I < 0.012 Impressions: Carotid Doppler Study 06/05/18 00:00 IMPRESSION: NO HEMODYNAMICALLY SIGNIFICANT STENOSIS. Elbow X-Ray 06/05/18 00:00 IMPRESSION: NEGATIVE STUDY OF THE LEFT ELBOW. NO RADIOGRAPHIC EVIDENCE OF ACUTE INJURY. Renal Ultrasound 06/05/18 00:00 IMPRESSION: There is some cortical thinning in the kidneys no acute abnormality. Chest X-Ray 06/05/18 15:05 IMPRESSION: NO ACUTE RADIOGRAPHIC FINDING IN THE CHEST. Head CT 06/05/18 15:05 IMPRESSION: NORMAL BRAIN CT WITHOUT CONTRAST. EVIDENCE OF ACUTE STROKE: NO. Wrist X-Ray 06/05/18 16:14 IMPRESSION: No acute fracture. Advanced osteoarthritis right 1st carpometacarpal joint Shoulder X-Ray 06/05/18 16:22 IMPRESSION: NEGATIVE STUDY OF THE LEFT SHOULDER. NO RADIOGRAPHIC EVIDENCE OF ACUTE INJURY. Transvaginal US 06/05/18 17:47 IMPRESSION: Normal as seen, but the ovaries could not be seen. Qualifiers - * PATIENT BEING DISCHARGED WITH ANY OF THE FOLLOWING DIAGNOSIS: No Plan Time Spent: Less than 30 Minutes
[2018-06-06 14:00] VITALS: BP 123/70
--- NOTE | 2018-06-07 14:23 | EKG REPORT ---
SEVERITY:- NORMAL ECG - SINUS RHYTHM : Confirmed by: Ronda Beebe 07-Jun-2018 14:23:25
--- NOTE | 2018-06-07 18:31 | PDOC CONSULTATION ---
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 Patient says she brought her daughter for an annual PE and while standing on the habitat biologist area, she felt light headed and dizzy. She passed out and per daughter was out for 5 minutes. No seizure-like activity. No urinary or bowel incontinence. No confusion. She denies SOB, chest pain or palpitations. She does complain of increasing left flank pain, episodic since last night. She says has history of nephrolithiasis and had lithotripsy before. She denies fever, chills, dysuria, hematuria or frequency. She also complains she has been having increasing vaginal bleeding since Saturday. She thinks tis may be related to her perimenopause when this started last year. Her bleeding stopped 3 months ago and recurred last Saturday. Patient describes prior history of dizzy spell and 1 history of syncopal spell about 2 years ago during which she claims that she had 2D echo and a stress test which she claims were relatively unremarkable. These results are not available to me. Patient on questioning does admit to having loud snoring off and on. She has noted difficulty staying asleep, daytime fatigue and tiredness. Past Medical History Cardiac Medical History: Reports: Hyperlipidema - triglycerides, Hypertension Denies: Coronary Artery Disease, Myocardial Infarction Pulmonary Medical History: Denies: Asthma, Bronchitis, Chronic Obstructive Pulmonary Disease (COPD), Pneumonia Neurological Medical History: Reports: Migraine Denies: Seizures GI Medical History: Reports: Gastroesophageal Reflux Disease Musculoskeltal Medical History: Reports: Arthritis - Spinal, Left Knee, LEFT THUMB, NECK Hematology: Denies: Anemia Past Surgical History Past Surgical History: Reports: Appendectomy, Section, Orthopedic Surgery - carpal tunnel Denies: Hysterectomy, Pacemaker Social History Information Source: Patient Smoking Status: Never Smoker Frequency of Alcohol Use: Rare Hx Recreational Drug Use: No Drugs: None Hx Prescription Drug Abuse: No - Advance Directive Resuscitation Status: Full Code Family History Family History: Hypertension Parental Family History Reviewed: Yes Children Family History Reviewed: Yes Sibling(s) Family History Reviewed.: Yes Medication/Allergy Home Medications: Aspirin [Aspirin EC] 81 mg PO DAILY 06/05/18 Esomeprazole Magnesium [Nexium] 40 mg PO DAILY 06/05/18 Multivitamin/Folic Acid/Biotin [Hair, Skin and Nails Tablet] 1 tab PO DAILY [place]-3 Fatty Acids/Fish Oil [Fish Oil 1,000 mg Capsule] 1 cap PO DAILY Acetaminophen [Tylenol 325 mg Tablet] 650 mg PO Q6HP PRN tablet 06/06/18 Ferrous Sulfate 325 mg PO DAILY #30 tablet 06/06/18 Allergies/Adverse Reactions: codeine [Codeine] Allergy (Mild, Verified 06/05/18 14:50) rash, swelling, hives promethazine HCl [From Phenergan] Allergy (Mild, Verified 06/05/18 14:50) rash, swelling, hives Sulfa (Sulfonamide Antibiotics) Allergy (Mild, Verified 06/05/18 14:50) rash, swelling, hives Review of Systems Review of Systems: Please see history of present illness and past medical history as wall. Constitutional: No fever or chills reported. Head : No recent chronic headaches, recent head injury. Eyes: No recent eye pain, diplopia, redness, discharge, acute visual changes. Ears: No recent chronic ear pain, acute hearing loss, ear discharge. Oral cavity: No recent ulcerations, bleeding, oral cavity discomfort. Neck: No recent acute neck pain reported. Hematologic: No recent easy bruising or bleeding. Lymphatic: No recent lymph node enlargement reported. Cardiovascular system review: See history of present illness. Respiratory system review: No hemoptysis or blood clots in the lungs reported. Mild Shortness of breath on exertion Gastrointestinal system review: Negative for any recent acute hematemesis, melena. Also gives history of reflux Genitourinary system review: No recent acute or chronic hematuria, flank pain, UTI etc. reported. Skin system review: Negative for any recent abnormal bruising, no rash, no pruritus reported. Neurologic: No prior history of strokes, mini strokes, seizure disorder. Psychologic: No history of major psychosis or major depression reported. Musculoskeletal: Minor aches and pains reported. No acute joint swelling reported. Endocrine: No recent polyuria, polydipsia, recent heat or cold intolerance. Patient does give history of habitual snoring, daytime fatigue and sleepiness, difficulty staying asleep. Physical Exam Vital Signs: Temp Pulse Resp BP Pulse Ox 97.8 F 53 L 16 123/70 100 06/06/18 13:57 06/06/18 13:57 06/06/18 13:57 06/06/18 13:57 06/06/18 13:57 Intake & Output 06/05/18 06/06/18 06/07/18 06:59 06:59 06:59 Intake Total 522 Balance 522 Weight 98.7 kg Exam: GENERAL: well-nourished and in no acute distress. Alert and oriented x3 HEAD: Atraumatic, normocephalic. EYES: Pupils equal round and reactive to light, extraocular movements intact, sclera anicteric, conjunctiva are normal. ENT: TMs normal, nares patent, oropharynx clear without exudates. Moist mucous membranes. No oral ulcerations or bleeding gums noted NECK: supple without lymphadenopathy. Trachea is central. No cervical or axillary lymphadenopathy noted. Carotids are 2+, JVD WNL LUNGS: Respiration seems nonlabored, no significant accessory muscle action noted. Breath sounds clear to auscultation bilaterally and equal noted. No wheezes rales or rhonchi noted. No significant dullness noted on percussion. CHEST: Palpation of the chest wall shows no significant chest wall tenderness. HEART: [place] [employer], No PSH, 1/6 ALMA aortic area, 1/6 butts systolic murmur mitral area, no rubs, no gallops. ABDOMEN: Soft, no significant tenderness appreciated, normoactive bowel sounds. No guarding, no rebound. No rigidity noted . No masses appreciated. EXTREMITIES: Pedal pulses are 1-2+, no calf tenderness noted. No clubbing or cyanosis. negative pedal edema noted NEUROLOGICAL: Focused neurological exam showed no significant neurologic deficit. Normal speech, no focal weakness appreciated. PSYCH: Normal mood, normal affect. Judgment and insight within normal limits. SKIN: No significant ecchymosis, skin is noted to be warm. MUSCULOSKELETAL EXAM: No significant acute joint swelling noted. Results Laboratory Results: 06/06/18 06/06/18 03:59 03:59 Retic Count (auto) 1.81 Absolute Retic 0.069 Iron 20.1 L TIBC 447 % Saturation 4 Ferritin 5.00 L Vitamin B12 267.0 Folate 12.50 06/05/18 18:45 Troponin I < 0.012 EKG Comments: Sinus rhythm, no acute ST-T wave changes are noted Impressions: Carotid Doppler Study 06/05/18 00:00 IMPRESSION: NO HEMODYNAMICALLY SIGNIFICANT STENOSIS. Elbow X-Ray 06/05/18 00:00 IMPRESSION: NEGATIVE STUDY OF THE LEFT ELBOW. NO RADIOGRAPHIC EVIDENCE OF ACUTE INJURY. Renal Ultrasound 06/05/18 00:00 IMPRESSION: There is some cortical thinning in the kidneys no acute abnormality. Chest X-Ray 06/05/18 15:05 IMPRESSION: NO ACUTE RADIOGRAPHIC FINDING IN THE CHEST. Head CT 06/05/18 15:05 IMPRESSION: NORMAL BRAIN CT WITHOUT CONTRAST. EVIDENCE OF ACUTE STROKE: NO. Wrist X-Ray 06/05/18 16:14 IMPRESSION: No acute fracture. Advanced osteoarthritis right 1st carpometacarpal joint Shoulder X-Ray 06/05/18 16:22 IMPRESSION: NEGATIVE STUDY OF THE LEFT SHOULDER. NO RADIOGRAPHIC EVIDENCE OF ACUTE INJURY. Transvaginal US 06/05/18 17:47 IMPRESSION: Normal as seen, but the ovaries could not be seen. Assessment & Plan - Diagnosis (1) Syncope Qualifiers: Syncope type: unspecified Qualified Code(s): R55 - Syncope and collapse Is this a current diagnosis for this admission?: Yes (2) Hypertension Qualifiers: Hypertension type: essential hypertension Qualified Code(s): I10 - Essential (primary) hypertension Is this a current diagnosis for this admission?: Yes (3) Sleep disorder Is this a current diagnosis for this admission?: Yes (4) IBS (irritable bowel syndrome) Qualifiers: Irritable bowel syndrome type: unspecified Qualified Code(s): K58.9 - Irritable bowel syndrome without diarrhea Is this a current diagnosis for this admission?: Yes (5) Iron deficiency anemia Qualifiers: Iron deficiency anemia type: unspecified iron deficiency Qualified Code(s) : D50.9 - Iron deficiency anemia, unspecified Is this a current diagnosis for this admission?: Yes (6) History of kidney stones Is this a current diagnosis for this admission?: Yes - Notes Notes: Syncope: The cause is undetermined at this time. There could be multiple differential diagnosis. Most likely vasovagal/neurocardiogenic. Other differential diagnosis includes cardiac arrhythmia in this patient's age group, hypotension secondary to orthostasis, seizure disorder, hypoglycemia et cetera. Both farzaneh and tachyarrhythmias are possible. Patient will benefit from cardiac monitoring during this admission. May need to consider outpatient cardiac monitoring using mobile cardiac quality assurance monitor final if clinically indicated. We will also consider a tilt table test. Hypertension: Reasonably well controlled. Blood pressure goal in this patient is 135/85 or less. This was discussed with the patient. Currently blood pressure under reasonable control. Better medication for this patient are DAVID inhibitor/ARB/beta jayson etc. discussed side effects of uncontrolled hypertension and also severe hypotension. Sleep disorder breathing: Based on patient's symptoms, oropharyngeal exam, body habitus, comorbid diagnosis etc., there is high probability of underlying sleep apnea syndrome. Evaluation is recommended for sleep apnea as treatment of this condition if found is likely to benefit patient and reduce patient's future cardiovascular risk. IBS: Patient being well managed by hospitalist. Iron deficiency anemia due to menorrhagia: Patient being evaluated by other specialist. History of kidney stone: Patient had some flank pain, could be recurrence. However currently stable. - Time Time Spent: 30 to 50 Minutes - CODE STATUS was discussed, patient remains full code. Surrogate decision-maker patient's . Multiple medical problems were addressed. More than 50% of the time spent coordinating care, discussing management plans with involved caregivers. Management plans discussed with involved personnels. Medical decision making was of moderate to high complexity , patient's has multiple comorbidities. Medications reviewed and adjusted accordingly: Yes
== END 2018-06-06 14:52 | disposition home or self-care (01) ==
LOC: ER 13:34 → EH 18:17 → 5 21:02
PROVIDERS: ADMIT Internal Medicine; ATTEND Internal Medicine
DX: R55 Syncope and collapse (principal); I10 Essential (primary) hypertension; D50.9 Iron deficiency anemia, unspecified; N92.4 Excessive bleeding in the premenopausal period; R10.9 Unspecified abdominal pain; G47.00 Insomnia, unspecified; K58.9 Irritable bowel syndrome, unspecified; M18.9 Osteoarthritis of first carpometacarpal joint, unspecified; G47.9 Sleep disorder, unspecified; M25.532 Pain in left wrist; M25.512 Pain in left shoulder; K21.9 Gastro-esophageal reflux disease without esophagitis; Z79.899 Other long term (current) drug therapy; Z79.82 Long term (current) use of aspirin; Z87.442 Personal history of urinary calculi; Z98.890 Other specified postprocedural states; Z90.49 Acquired absence of other specified parts of digestive tract; Z23 Encounter for immunization; Z82.49 Family history of ischemic heart disease and other diseases of the circulatory system
CPT/HCPCS: 93005 ×2; 99285; 96361; 96374; 36415 ×2; 82553; 82607; 82550; 82728; 82746; 83540; 83550; 85025; 85045; 80053; 84484; 93880; 71045; 73070; 73030; 73110; 76775; 76830; 70450; 90686; 93010 ×2; G0378 ×3; G0008; J3490; J1644 ×2; J1885 ×2; J7030 ×2; 90471

== ENCOUNTER → 2018-06-20 | Outpatient (CLI) | payer MEDICAID ==
--- NOTE | 2018-06-20 14:35 | RADIOLOGY REPORT (SQ) ---
EXAM DESCRIPTION: WRIST LEFT 3 VIEWS COMPLETED DATE/TIME: 06/20/2018 2:18 pm REASON FOR STUDY: LEFT WRIST PAIN; M54.2 CERVICALGIA M25.562 PAIN IN LEFT KNEE M25.532 PAIN IN LE FT WRIST COMPARISON: Radiographs of the left wrist, 06/05/2018 NUMBER OF VIEWS: Three views. TECHNIQUE: AP, lateral, and oblique radiographic images acquired of the left wrist. LIMITATIONS: None. FINDINGS: MINERALIZATION: Normal. BONES: No acute fracture or dislocation. No worrisome bone lesions. Normal alignment. JOINTS: The carpus is normally aligned. There is redemonstrated, advanced arthrosis of the left 1st carpometacarpal joint (basal joint of the thumb). SOFT TISSUES: No soft tissue swelling. No foreign body. OTHER: No other significant finding. IMPRESSION: No fracture dislocation of the left wrist. The carpus is normally aligned. There is r edemonstrated, advanced arthrosis of the left 1st carpometacarpal joint (basal joint of the thumb). TECHNICAL DOCUMENTATION: JOB ID: [id number] [employer]- All Rights Reserved Reading location - IP/workstation name: [email or web address]
--- NOTE | 2018-06-20 14:37 | RADIOLOGY REPORT (SQ) ---
EXAM DESCRIPTION: KNEE LEFT 4 VIEWS COMPLETED DATE/TIME: 06/20/2018 2:18 pm REASON FOR STUDY: LEFT WRIST PAIN;CERVICAL PAIN;LEFT ANTERIOR KNEE PAIN M54.2 CERVICALGIA M25.562 PAIN IN LEFT KNEE M25.532 PAIN IN LEFT WRIST COMPARISON: None. NUMBER OF VIEWS: Four views. TECHNIQUE: AP, lateral, and both oblique radiographic images acquired of the left knee. LIMITATIONS: None. FINDINGS: MINERALIZATION: Normal. BONES: No acute fracture or dislocation. No worrisome bone lesions. JOINT: No effusion. Joint spaces are well preserved. SOFT TISSUES: No soft tissue swelling. No radio-opaque foreign body. OTHER: No other significant finding. IMPRESSION: Normal radiographs of the left knee. No fracture or dislocation. Joint spaces are well preserved. TECHNICAL DOCUMENTATION: JOB ID: [id number] [employer]- All Rights Reserved Reading location - IP/workstation name: [email or web address]
--- NOTE | 2018-06-20 14:59 | RADIOLOGY REPORT (SQ) ---
EXAM DESCRIPTION: C SP 4 OR 5 VIEWS COMPLETED DATE/TIME: 06/20/2018 2:18 pm REASON FOR STUDY: LEFT WRIST PAIN;CERVICAL PAIN; M54.2 CERVICALGIA M25.562 PAIN IN LEFT KNEE M25.5 32 PAIN IN LEFT WRIST COMPARISON: None. NUMBER OF VIEWS: Five views. TECHNIQUE: AP, lateral, obliques and odontoid radiographic images acquired of the cervical spine. LIMITATIONS: None. FINDINGS: MINERALIZATION: Normal. ALIGNMENT: Straightening of cervical lordosis likely due to muscle spasm VERTEBRAE: Vertebral bodies of normal height. DISCS: Disc space loss of height with anterior osteophyte formation at C5-6 FORAMINA: Moderate right C3-4 and C5-6 and C6-7 foraminal narrowing from asymmetric right-sided facet and uncovertebral hypertrophy. Mild left C6-7 foraminal narrowing from uncovertebral hypertrophy LATERAL AND POSTERIOR ELEMENTS: Facets, lateral masses and spinous processes without significant find ings. HARDWARE: None in the spine. SOFT TISSUES: No masses or calcifications. Lung apices clear. OTHER: No other significant finding. IMPRESSION: Degenerative changes as above TECHNICAL DOCUMENTATION: JOB ID: [id number]- All Rights Reserved Reading location - IP/workstation name: [email or web address]
== END ==
LOC: OD 13:48
PROVIDERS: ATTEND Family Medicine
DX: M50.323 Other cervical disc degeneration at C6-C7 level (principal); M25.562 Pain in left knee; M25.532 Pain in left wrist; M18.9 Osteoarthritis of first carpometacarpal joint, unspecified
CPT/HCPCS: 72050

== ENCOUNTER → 2019-04-03 | Outpatient (CLI) | payer BC ==
--- NOTE | 2019-04-03 16:27 | RADIOLOGY REPORT (SQ) ---
EXAM DESCRIPTION: SHOULDER LEFT 2 OR MORE VIEWS COMPLETED DATE/TIME: 04/03/2019 4:16 pm REASON FOR STUDY: ACUTE PAIN OF LEFT SHOULDER M25.512 PAIN IN LEFT SHOULDER COMPARISON: 06/05/2018 NUMBER OF VIEWS: Three views. TECHNIQUE: Internal rotation, external rotation, and Y view images acquired of the left shoulder. LIMITATIONS: None. FINDINGS: MINERALIZATION: Normal. BONES: No acute fracture. No worrisome bone lesions. JOINTS: No dislocation. VISUALIZED LUNGS AND RIBS: No pneumothorax. No rib fracture. SOFT TISSUES: No radiopaque foreign body. OTHER: No other significant finding. IMPRESSION: NEGATIVE STUDY OF THE LEFT SHOULDER. NO RADIOGRAPHIC EVIDENCE OF ACUTE INJURY. TECHNICAL DOCUMENTATION: JOB ID: [id number] [employer]- All Rights Reserved Reading location - IP/workstation name: [email or web address]
== END ==
LOC: OD 16:00
PROVIDERS: ATTEND Family Medicine
DX: M25.512 Pain in left shoulder (principal)

== ENCOUNTER → 2019-04-07 | Outpatient (CLI) | payer BC ==
--- NOTE | 2019-04-07 17:05 | WOMENS IMAGING REPORT ---
EXAM DESCRIPTION: BILAT SCREENING MAMMO W/CAD COMPLETED DATE/TIME: 04/07/2019 4:33 pm REASON FOR STUDY: Z12.31 ENCOUNTER FOR SCREENING MAMMOGRAM FOR MALIGNANT NEOPLASM OF BREAST Z12.31 ENCNTR SCREEN MAMMOGRAM FOR MALIGNANT NEOPLASM OF ADILENE COMPARISON: Digital bilateral screening mammograms dated 02/14/2018 common 05/31/2015 and digital diag nostic mammogram dated 01/23/2017. EXAM PARAMETERS: Standard craniocaudal and mediolateral oblique views of each breast recorded using digital acquisition. Read with the assistance of CAD. .[facility] [place] - [employer] Version 2.4 LIMITATIONS: None. FINDINGS: Findings present which are benign by mammographic criteria. No suspicious masses, calcifi cations or architectural distortion. Pertinent benign findings: Stable nodule in the right subareolar region of the breast. Small stable calcifications in the breast. Benign mammographic findings may include one or more of the following: Smooth masses, popcorn/rim/co arse calcifications, asymmetries, post-procedure changes, and lesions with long-standing stability. IMPRESSION: BENIGN MAMMOGRAPHIC FINDINGS. BIRADS 2 BREAST DENSITY: b. There are scattered areas of fibroglandular density. BIRAD: ASSESSMENT: 2 BENIGN FINDING(S) RECOMMENDATION: 1. ROUTINE SCREENING COMMENT: The patient has been notified of the results by letter per MQSA requirements. Additional no tification policies are in place for contacting patient with suspicious or incomplete findings. Quality ID #[id number]: The [employer] recommends an annual screening mammogram for women aged 40 years or over. This facility utilizes a reminder system to ensure that all patients receive reminder letters, and/or direct phone calls for appointments. This includes reminders for routine scr eening mammograms, diagnostic mammograms, or other Breast Imaging Interventions when appropriate. Th is patient will be placed in the appropriate reminder system. TECHNICAL DOCUMENTATION: FINDING NUMBER: (1) ASSESSMENT: (1) JOB ID: [id number] [employer]- All Rights Reserved Reading location - IP/workstation name: [email or web address]
== END ==
LOC: WI 14:04
PROVIDERS: ATTEND Family Medicine
DX: Z12.31 Encounter for screening mammogram for malignant neoplasm of breast (principal)
CPT/HCPCS: 77067

== ENCOUNTER 2019-08-10 11:55 | Emergency (ER) | payer BC, MEDICAID ==
--- NOTE | 2019-08-10 13:14 | ER Document Report ---
ED Medical Screen (RME) - General Chief Complaint: Headache Stated Complaint: HEADACHE Time Seen by Provider: 08/10/19 12:54 Primary Care Provider: KYLIE DANIELS DO [Primary Care Provider] - Follow up as needed Notes: Patient is a 48-year-old female with a history of migraines, hypertension and high cholesterol who presents emergency department with a chief complaint of headache. Patient reports that she woke up with a slight headache this morning and did see her primary care physician around 11 AM. She reports that while at her doctor's office she developed left facial droop, left arm tingling, and problems with her speech. Patient reports this does not feel like her typical migraine. 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 Her primary care physician did call EMS to have her transported to the emergency department for further evaluation. Patient reports that her headache feels like a dull ache on the top of her head that is intermittent. Patient also reports that she has been battling cold symptoms with cough and congestions. Patient denies fever. TRAVEL OUTSIDE OF THE [place] IN LAST 30 DAYS: No - Related Data Allergies/Adverse Reactions: codeine [Codeine] Allergy (Mild, Verified 08/10/19 12:53) rash, swelling, hives promethazine HCl [From Phenergan] Allergy (Mild, Verified 08/10/19 12:53) rash, swelling, hives Sulfa (Sulfonamide Antibiotics) Allergy (Mild, Verified 08/10/19 12:53) rash, swelling, hives Past Medical History - Past Medical History Cardiac Medical History: Reports: Hx Hypercholesterolemia - triglycerides, Hx Hypertension Denies: Hx Coronary Artery Disease, Hx Heart Attack Pulmonary Medical History: Denies: Hx Asthma, Hx Bronchitis, Hx COPD, Hx Pneumonia Neurological Medical History: Reports: Hx Migraine. Denies: Hx Cerebrovascular Accident, Hx Seizures Renal/ Medical History: Reports: Hx Kidney Stones. Denies: Hx Peritoneal Dialysis GI Medical History: Reports: Hx Gastroesophageal Reflux Disease Musculoskeltal Medical History: Reports Hx Arthritis - Spinal, Left Knee, LEFT THUMB, NECK Traumatic Medical History: Reports: Hx Fractures Past Surgical History: Reports: Hx Appendectomy, Hx Section, Hx Orthopedic Surgery - carpal tunnel. Denies: Hx Hysterectomy, Hx Pacemaker - Immunizations Hx Diphtheria, Pertussis, Tetanus Vaccination: Yes - 2013 Physical Exam - Vital signs Vitals: Temp Pulse Resp BP Pulse Ox 98.1 F 72 16 143/72 H 97 08/10/19 12:04 08/10/19 12:04 08/10/19 12:04 08/10/19 12:04 08/10/19 12:04 Course - Re-evaluation Re-evalutation: 08/10/19 13:13 In triage patient does have difficulty speaking in complete sentences. Patient reports she feels like she cannot get her words out. Patient reiterates that this is not usual of her normal migraine symptoms although the left facial droop is. She also reports having left arm numbness. Will initiate a stroke work-up. I have greeted and performed a rapid initial assessment of this patient. A comprehensive ED assessment and evaluation of the patient, analysis of test results and completion of the medical decision making process will be conducted by additional ED providers. - Vital Signs Vital signs: Temp Pulse Resp BP Pulse Ox 98.1 F 72 16 143/72 H 97 08/10/19 12:04 08/10/19 12:04 08/10/19 12:04 08/10/19 12:04 08/10/19 12:04 Doctor's Discharge - Discharge Referrals: KYLIE DANIELS DO [Primary Care Provider] - Follow up as needed
--- NOTE | 2019-08-10 13:34 | RADIOLOGY REPORT (SQ) ---
EXAM DESCRIPTION: CT HEAD WITHOUT COMPLETED DATE/TIME: 08/10/2019 1:13 pm REASON FOR STUDY: facial droop, stuttering speech, left arm tingling COMPARISON: 06/05/2018 TECHNIQUE: Axial images acquired through the brain without intravenous contrast. Images reviewed wit h bone, brain and subdural windows. Images stored on PACS. All CT scanners at this facility use dose modulation, iterative reconstruction, and/or weight based d osing when appropriate to reduce radiation dose to as low as reasonably achievable (ALARA). [facility]: Dose Right [facility]: CareDose [facility]: Dose Right [facility]: Teradose 4D [facility]: Smart Gr[employer] RADIATION DOSE: CT Rad equipment meets quality standard of care and radiation dose reduction techniq ues were employed. CTDIvol: 53.2 mGy. DLP: 1044 mGy-cm.. LIMITATIONS: None. FINDINGS: VENTRICLES: Normal size and contour. CEREBRUM: No masses. No hemorrhage. No midline shift. Age appropriate white matter. No evidence for a cute infarction. CEREBELLUM: No masses. No hemorrhage. No alteration of density. No evidence for acute infarction. EXTRA-AXIAL SPACES: No fluid collections. ORBITS AND GLOBE: No intra- or extraconal masses. Normal contour of globe without masses. CALVARIUM: No fracture. PARANASAL SINUSES: No fluid or mucosal thickening. SOFT TISSUES: No mass or hematoma. OTHER: No other significant finding. IMPRESSION: NO ACUTE INTRACRANIAL FINDINGS. EVIDENCE OF ACUTE STROKE: NO. COMMENT: Results called to the emergency room physician at 1325 hours. TECHNICAL DOCUMENTATION: JOB ID: [id number] Quality ID # [id number]: Final reports with documentation of one or more dose reduction techniques (e.g., Au tomated exposure control, adjustment of the mA and/or kV according to patient size, use of iterative reconstruction technique) 2010 [employer]- All Rights Reserved Reading location - IP/workstation name: [email or web address]
[2019-08-10 13:40] LABS: INTERNATIONAL RATION (INR) 0.99; PARTIAL THROMBOPLASTIN TIME 28.6 SEC (23.5-35.8); PROTHROMBIN TIME 13.1 SEC (11.4-15.4)
[2019-08-10 13:46] LABS: ABSOLUTE EOSINOPHILS # (AUTO) 0.1 10^3/uL (0.0-0.6); ABSOLUTE LYMPHOCYTES (AUTO) 1.8 10^3/uL (0.5-4.7); ABSOLUTE MONOCYTES (AUTO) 0.5 10^3/uL (0.1-1.4); ABSOLUTE NEUT (AUTO) 4.7 10^3/uL (1.7-8.2); BASOPHILS % (AUTO) 0.4 % (0-2); EOSINOPHILS % (AUTO) 0.9 % (0-6); HEMATOCRIT 36.2 % (36.0-47.0); HEMOGLOBIN 11.9 g/dL (12.0-15.5); LYMPHOCYTES % (AUTO) 24.8 % (13-45); MEAN CORPUSCULAR HEMOGLOBIN 24.4 pg (27.0-33.4); MEAN CORPUSCULAR HGB CONC 32.8 g/dL (32.0-36.0); MEAN CORPUSCULAR VOLUME 74 fl (80-97); MONOCYTES % (AUTO) 7.4 % (3-13); PLATELET COUNT 424 10^3/uL (150-450); RED BLOOD COUNT 4.88 10^6/uL (3.72-5.28); RED CELL DISTRIBUTION WIDTH 15.3 % (11.5-14.0); SEGMENTED NEUTROPHILS % (AUTO) 66.5 % (42-78); TOTAL CELLS COUNTED % (AUTO) 100 %; WHITE BLOOD COUNT 7.1 10^3/uL (4.0-10.5)
--- NOTE | 2019-08-10 13:47 | RADIOLOGY REPORT (SQ) ---
EXAM DESCRIPTION: CHEST SINGLE VIEW COMPLETED DATE/TIME: 08/10/2019 1:20 pm REASON FOR STUDY: FACIAL DROOP, POSS STROKE COMPARISON: 06/05/2018 EXAM PARAMETERS: NUMBER OF VIEWS: One view. TECHNIQUE: Single frontal radiographic view of the chest acquired. RADIATION DOSE: NA LIMITATIONS: None. FINDINGS: LUNGS AND PLEURA: No opacities, masses or pneumothorax. No pleural effusion. MEDIASTINUM AND HILAR STRUCTURES: No masses. Contour normal. HEART AND VASCULAR STRUCTURES: Heart normal in size. Normal vasculature. BONES: No acute findings. HARDWARE: None in the chest. OTHER: No other significant finding. IMPRESSION: NO ACUTE RADIOGRAPHIC FINDING IN THE CHEST. TECHNICAL DOCUMENTATION: JOB ID: [id number] [employer]- All Rights Reserved Reading location - IP/workstation name: [email or web address]
[2019-08-10 14:17] LABS: BLOOD UREA NITROGEN 17 mg/dL (7-20); CALCIUM 10.1 mg/dL (8.4-10.2); GLUCOSE 110 mg/dL (75-110)
[2019-08-10 14:18] LABS: ALBUMIN 4.7 g/dL (3.5-5.0); ALKALINE PHOSPHATASE 124 U/L (38-126); ANION GAP 15 (5-19); ASPARTATE AMINO TRANSFERASE 38 U/L (14-36); BILIRUBIN,DIRECT 0.3 mg/dL (0.0-0.4); BILIRUBIN,TOTAL 0.5 mg/dL (0.2-1.3); CARBON DIOXIDE 25 mmol/L (22-30); CHLORIDE 99 mmol/L (98-107); CREATINE KINASE 76 U/L (30-135); POTASSIUM 4.4 mmol/L (3.6-5.0); TOTAL PROTEIN 8.2 g/dL (6.3-8.2)
[2019-08-10] MEDS ORDERED: PROCHLORPERAZINE EDISYLATE INJ 10 MG/2 ML VIAL IV ONE (14:38)
--- NOTE | 2019-08-10 14:46 | ER Document Report ---
ED Headache - General Chief Complaint: Headache Stated Complaint: HEADACHE Time Seen by Provider: 08/10/19 12:54 Primary Care Provider: KYLIE DANIELS DO [Primary Care Provider] - Follow up as needed Notes: 48-year-old woman presents to the emergency department history of developed a left facial droop/asymmetry while at the doctor's office. She was brought to the emergency department as possible acute CVA. Patient denies any other associated symptoms. She has a history of migraine with atypical neurologic findings and has had similar episodes in the past. She is seeing a neurologist, however, states that she is being referred to a new neurologist for further evaluation. TRAVEL OUTSIDE OF THE [place] IN LAST 30 DAYS: No - Related Data Allergies/Adverse Reactions: codeine [Codeine] Allergy (Mild, Verified 08/10/19 12:53) rash, swelling, hives promethazine HCl [From Phenergan] Allergy (Mild, Verified 08/10/19 12:53) rash, swelling, hives Sulfa (Sulfonamide Antibiotics) Allergy (Mild, Verified 08/10/19 12:53) rash, swelling, hives Past Medical History - Social History Smoking Status: Former Smoker Family History: Reviewed & Not Pertinent Patient has suicidal ideation: No Patient has homicidal ideation: No - Past Medical History Cardiac Medical History: Reports: Hx Hypercholesterolemia - triglycerides, Hx Hypertension Denies: Hx Coronary Artery Disease, Hx Heart Attack Pulmonary Medical History: Denies: Hx Asthma, Hx Bronchitis, Hx COPD, Hx Pneumonia Neurological Medical History: Reports: Hx Migraine. Denies: Hx Cerebrovascular Accident, Hx Seizures Renal/ Medical History: Reports: Hx Kidney Stones. Denies: Hx Peritoneal Dialysis GI Medical History: Reports: Hx Gastroesophageal Reflux Disease Musculoskeletal Medical History: Reports Hx Arthritis - Spinal, Left Knee, LEFT THUMB, NECK Traumatic Medical History: Reports: Hx Fractures Past Surgical History: Reports: Hx Appendectomy, Hx Section, Hx Orthopedic Surgery - carpal tunnel. Denies: Hx Hysterectomy, Hx Pacemaker - Immunizations Hx Diphtheria, Pertussis, Tetanus Vaccination: Yes - 2013 Review of Systems - Review of Systems Notes: Constitutional: Negative for fever. HENT: Negative for sore throat. Eyes: Negative for visual changes. Cardiovascular: Negative for chest pain. Respiratory: Negative for shortness of breath. Gastrointestinal: Negative for abdominal pain, vomiting or diarrhea. Genitourinary: Negative for dysuria. Musculoskeletal: Negative for back pain. Skin: Negative for rash. Neurological: + Left facial droop, + headaches, no speech abnormality, no visual abnormality, no weakness or numbness. 10 point ROS negative except as marked above and in HPI. Physical Exam - Vital signs Vitals: Temp Pulse Resp BP Pulse Ox 98.1 F 72 16 143/72 H 97 08/10/19 12:04 08/10/19 12:04 08/10/19 12:04 08/10/19 12:04 08/10/19 12:04 - Notes Notes: PHYSICAL EXAMINATION: Physical Exam: General: Well-nourished well-developed female in no acute distress HEENT: NC/AT, pupils equal round and reactive to light, MM moist,nares clear, + increased nasolabial fold left side, left facial droop Neck: supple, no adenopathy, no masses. Lungs: clear, no wheezing, no rales no rhonchi CVS: Regular rate and rhythm no murmur gallop or rub Abdomen: Soft active nontender, no masses, no hepatosplenomegaly Ext: No edema clubbing or cyanosis. Neuro: Alert and responsive, moving all 4 extremities on command, cranial nerves intact, no speech abnormality, no visual abnormality, no cerebellar abnormality.. Skin: Intact no open lesions, no rash PSYCH: Normal mood, normal affect. Course - Re-evaluation Re-evalutation: 08/10/19 14:44 Patient was brought to the emergency department as a stroke alert, however, history of atypical migraine with neurologic symptoms. Patient states that she has had the exact process to occur in the past. States that usually it improves when her headache has been resolved. She denied any other associated neurologic symptoms, the onset of symptoms were at approximately 11:00 AM. 08/10/19 16:09 She refused the medication, states that her headache is now a 3-4 and that she took a nap and is feeling much better. States that in the past she is able to take Advil or Excedrin and rest and the headache will go away as well as her symptoms. She is asking to be discharged home. There is no focal neurologic findings at the time of her discharge. Patient has a history of atypical migraine and will follow-up with her primary doctor as needed. - Vital Signs Vital signs: Temp Pulse Resp BP Pulse Ox 98.1 F 72 16 143/72 H 97 08/10/19 12:04 08/10/19 12:04 08/10/19 12:04 08/10/19 12:04 08/10/19 12:04 - Laboratory Result Diagrams: 08/10/19 13:24 08/10/19 13:24 Laboratory results interpreted by me: 08/10/19 08/10/19 13:24 13:24 Hgb 11.9 L MCV 74 L MCH 24.4 L RDW 15.3 H AST 38 H 08/10/19 16:10 I have reviewed laboratory data and used this information for the treatment decisions regarding the patient. - Diagnostic Test Radiology reviewed: Image reviewed, Reports reviewed - CT head noncontrast: No acute findings, no findings suggestive of stroke. Chest x-ray: No acute findings. - EKG Interpretation by Me EKG shows normal: Sinus rhythm - Rate 70, no acute ST-T wave abnormalities, normal EKG. Discharge - Discharge Clinical Impression: Atypical migraine, Facial asymmetry Condition: Good Disposition: HOME, SELF-CARE Instructions: Headache (OM), Migraine Headache (OM) Additional Instructions: You were seen today for a migraine headache. Please follow-up with your primary care doctor regarding today's ED visit. Return to emergency department immediately if you develop a headache that gets to its maximum severity within 20 minutes of onset, you pass out, you develop weakness, numbness, changes in your vision, become unable to keep any fluids down for more than 12 hours, or develop a fever greater than 100.4 degrees Fahrenheit. If you develop a similar migraine headache in the future I recommend that you immediately take 600 mg of ibuprofen and 50 mg of Benadryl and go to sleep as quickly as possible. This can often prevent your migraine headache from becoming severe. Referrals: KYLIE DANIELS DO [Primary Care Provider] - Follow up as needed
[2019-08-10 14:50] LABS: CREATINE KINASE MB 1.06 ng/mL (<4.55); TROPONIN I < 0.012 ng/mL
[2019-08-10 16:18] VITALS: BP 114/69
--- NOTE | 2019-08-10 18:45 | EKG REPORT ---
SEVERITY:- NORMAL ECG - SINUS RHYTHM : Confirmed by: Lester Melendez MD 10-Aug-2019 18:44:04
== END 2019-08-10 16:25 | disposition home or self-care (01) ==
LOC: ER 11:55
DX: G43.909 Migraine, unspecified, not intractable, without status migrainosus (principal); R29.810 Facial weakness; I10 Essential (primary) hypertension; Z87.891 Personal history of nicotine dependence; Z88.6 Allergy status to analgesic agent; Z88.5 Allergy status to narcotic agent; Z88.8 Allergy status to other drugs, medicaments and biological substances; Z88.2 Allergy status to sulfonamides
CPT/HCPCS: 36415; 70450; 71045; 80053; 82550; 82553; 84484; 85025; 85610; 85730; 93005; 93010; 99284